=== PATIENT | female | born 1960 | race Caucasian/White ===

== ENCOUNTER → 2017-11-21 | Outpatient (CLI) | payer BC ==
--- NOTE | 2017-11-22 13:47 | MM ---
Reason for exam: screening (asymptomatic). Last mammogram was performed 1 year and 3 months ago. History: Patient is postmenopausal. Benign US biopsy breast VAD LT of the left breast, March 03, 2015. Benign US breast aspiration single LT of the left breast, August 10, 2014. Physical Findings: A clinical breast exam by your physician is recommended on an annual basis and results should be correlated with mammographic findings. MG Screening Mammo w CAD Bilateral CC and MLO view(s) were taken. Prior study comparison: August 28, 2016, bilateral MG diagnostic mammo w CAD [facility]. August 23, 2015, bilateral MG diagnostic mammo w CAD [facility]. The breast tissue is heterogeneously dense. This may lower the sensitivity of mammography. No suspicious abnormality. No significant changes when compared with prior studies. ASSESSMENT: Negative, BI-RAD 1 RECOMMENDATION: Routine screening mammogram of both breasts in 1 year.
== END | disposition home or self-care (01) ==
LOC: RADMAMWWP 10:27
PROVIDERS: ATTEND Obstetrics & Gynecology
DX: Z12.31 Encounter for screening mammogram for malignant neoplasm of breast (principal)

== ENCOUNTER → 2019-01-30 | Outpatient (CLI) | payer BC ==
--- NOTE | 2019-01-30 10:52 | US ---
EXAMINATION TYPE: US thyroid st tissue head/neck DATE OF EXAM: 01/30/2019 COMPARISON: US 09/26/17 CLINICAL HISTORY: E04.2 Nontoxic multinodular goiter. GLAND SIZE: Right Lobe: 4.3 x 1.2 x 0.9 cm Overall Parenchyma: heterogenous Left Lobe: 4.5 x 1.9 x 1.6 cm Overall Parenchyma: heterogeneous Isthmus Thickness: 0.2 cm NODULES RIGHT: # of nodules measured on right: Multinodular, Measurement of previously measured nodule. 1. 0.6 X 0.7 x 0.6 cm hypoechoic cystic nodule at the upper pole with well-defined margins; presen t with microcalcifications. This nodule is wider than tall and shows no intranodular vascularity. Prior size: 0.6 x 1.9 x 1.1 cm LEFT: # of nodules measured on left: Multinodular, Measurement of previously measured nodule 1. 1.9 X 1.6 x 1.0 cm hypoechoic cystic nodule at the lower pole with well-defined margins; present with microcalcifications. This nodule is wider than tall and shows no intranodular vascularity. Prior size: 1.0 x 0.9 x 0.8 cm ISTHMUS: # of nodules measured in the isthmus: 0 Bilateral neck scanned, no evidence of lymphadenopathy. Multiple cysts measured on images. These measurements correspond to previously measured nodules. All appear cystic. Many have microcalcifications. IMPRESSION: 1.9 cm complex cystic nodule in the left lobe is increased in size from the previous exam where it me asured 1 cm. Thyroid tissue is heterogeneous correlate for thyroiditis.
[2019-01-30 11:38] LABS: T4, Free (Free Thyroxine) 1.03 ng/dL (0.78-2.19)
== END | disposition home or self-care (01) ==
LOC: RADUSWWP 10:08
PROVIDERS: ATTEND Internal Medicine Endocrinology, Diabetes & Metabolism
DX: E04.2 Nontoxic multinodular goiter (principal)
CPT/HCPCS: 36415; 76536; 84439; 84443

== ENCOUNTER → 2019-02-25 | Outpatient (CLI) | payer BC ==
--- NOTE | 2019-02-26 12:20 | MM ---
Reason for exam: screening (asymptomatic). Last mammogram was performed 1 year and 3 months ago. History: Patient is postmenopausal. Benign US biopsy breast VAD LT of the left breast, March 03, 2015. Benign US breast aspiration single LT of the left breast, August 10, 2014. Physical Findings: A clinical breast exam by your physician is recommended on an annual basis and results should be correlated with mammographic findings. MG 3D Screening Mammo W/Cad Bilateral CC and MLO view(s) were taken. Prior study comparison: November 21, 2017, bilateral MG screening mammo w CAD. August 28, 2016, bilateral MG diagnostic mammo w CAD [facility]. The breast tissue is heterogeneously dense. This may lower the sensitivity of mammography. There are benign appearing round calcifications bilaterally. Previous mammotome biopsy in the left breast x 2. There is no discrete abnormality. ASSESSMENT: Benign, BI-RAD 2 RECOMMENDATION: Routine screening mammogram of both breasts in 1 year.
== END | disposition home or self-care (01) ==
LOC: RADMAMWWP 10:57
PROVIDERS: ATTEND Obstetrics & Gynecology
DX: Z12.31 Encounter for screening mammogram for malignant neoplasm of breast (principal)
CPT/HCPCS: 77063; 77067

== ENCOUNTER → 2020-07-07 | Outpatient (CLI) | payer BC ==
--- NOTE | 2020-07-07 13:57 | US ---
EXAMINATION TYPE: US thyroid st tissue head/neck DATE OF EXAM: 07/07/2020 COMPARISON: CLINICAL HISTORY: E04.2 non-toxic multinodular goiter. Hx nodules. GLAND SIZE: Right Lobe: 3.7 x 1.3 x 1.0 cm Overall Parenchyma: heterogenous Left Lobe: 4.5 x 2.1 x 1.7 cm Overall Parenchyma: heterogeneous Isthmus Thickness: 0.9 cm NODULES Multiple bilateral nodules seen Previous documented nodules measured RIGHT: # of nodules measured on right: 1 1. 0.8 X 0.7 x 0.5 cm solid nodule at the upper/mid pole with well-defined margins. This nodule is wider than tall and shows no intranodular vascularity. Prior size: 0.6 x 0.7 x 0.6 cm LEFT: # of nodules measured on left: 1 1. 1.3 X 1.3 x 1.3 cm cystic nodule at the lower pole with well-defined margins. This nodule is wi de as tall and shows no intranodular vascularity. Prior size: 1.9 x 1.6 x 1.0 cm ISTHMUS: # of nodules measured in the isthmus: 1 1. 1.9 X 2.0 x 1.4 cm cystic nodule at the lower isthmus pole with well-defined margins. This nodu le is wider than tall and shows no intranodular vascularity. Prior size: No prior Bilateral neck scanned, no evidence of lymphadenopathy. IMPRESSION: Correlate for thyroiditis. Multinodular thyroid changes with a new isthmus nodule measuring 2 cm.
[2020-07-07 15:22] LABS: T4, Free (Free Thyroxine) 1.05 ng/dL (0.78-2.19)
== END | disposition home or self-care (01) ==
LOC: RADUSWWP 13:14
PROVIDERS: ATTEND Internal Medicine Endocrinology, Diabetes & Metabolism
DX: E04.2 Nontoxic multinodular goiter (principal)
CPT/HCPCS: 76536; 84439; 84443

== ENCOUNTER → 2020-08-31 | Outpatient (CLI) | payer BC ==
--- NOTE | 2020-09-01 09:09 | MM ---
Reason for exam: screening (asymptomatic). Last mammogram was performed 1 year and 6 months ago. History: Patient is postmenopausal. Benign US biopsy breast VAD LT of the left breast, March 03, 2015. Benign US breast aspiration single LT of the left breast, August 10, 2014. Physical Findings: A clinical breast exam by your physician is recommended on an annual basis and results should be correlated with mammographic findings. MG 3D Screening Mammo W/Cad Bilateral CC and MLO view(s) were taken. Prior study comparison: February 25, 2019, bilateral MG 3d screening mammo w/cad. November 21, 2017, bilateral MG screening mammo w CAD. The breast tissue is heterogeneously dense. This may lower the sensitivity of mammography. There are benign appearing round calcifications bilaterally. Previous mammotome biopsy in the left breast x 2. Asymmetric breast tissue left medial breast, stable. There is no discrete abnormality. ASSESSMENT: Benign, BI-RAD 2 RECOMMENDATION: Routine screening mammogram of both breasts in 1 year.
== END | disposition home or self-care (01) ==
LOC: RADMAMWWP 09:10
PROVIDERS: ATTEND Family Medicine
DX: Z12.31 Encounter for screening mammogram for malignant neoplasm of breast (principal)
CPT/HCPCS: 77063; 77067

== ENCOUNTER → 2021-09-14 | Outpatient (CLI) | payer BC ==
--- NOTE | 2021-09-18 08:54 | MM ---
Reason for exam: screening (asymptomatic). Last mammogram was performed 1 year ago. History: Patient is postmenopausal. Benign US biopsy breast VAD LT of the left breast, March 03, 2015. Benign US breast aspiration single LT of the left breast, August 10, 2014. Physical Findings: A clinical breast exam by your physician is recommended on an annual basis and results should be correlated with mammographic findings. MG 3D Screening Mammo W/Cad Bilateral CC and MLO view(s) were taken. Prior study comparison: August 31, 2020, bilateral MG 3d screening mammo w/cad. February 25, 2019, bilateral MG 3d screening mammo w/cad. November 21, 2017, bilateral MG screening mammo w CAD. August 28, 2016, bilateral MG diagnostic mammo w CAD [facility]. The breast tissue is heterogeneously dense. This may lower the sensitivity of mammography. Previous mammotome biopsy in the left breast x 2. There is chronic nodularity bilaterally. Benign oil cyst calcifications. Increased subareolar left MLO asymmetric density. The area becomes more defined on 3D images. Work up recommended. ASSESSMENT: Incomplete: need additional imaging evaluation, BI-RAD 0 RECOMMENDATION: Special view mammogram of the left breast. (3D) If lesion persists on supplemental views, image directed ultrasound is recommended. [facility] will attempt to contact patient to return for supplemental views and ultrasound if indicated.
== END | disposition home or self-care (01) ==
LOC: RADMAMWWP 15:44
PROVIDERS: ATTEND Obstetrics & Gynecology
DX: Z12.31 Encounter for screening mammogram for malignant neoplasm of breast (principal)
CPT/HCPCS: 77063; 77067

== ENCOUNTER → 2021-09-19 | Outpatient (CLI) | payer BC ==
--- NOTE | 2021-09-19 08:29 | MM ---
Reason for exam: additional evaluation requested from abnormal screening. Last mammogram was performed less than 1 month ago. History: Patient is postmenopausal and history of other cancer. Benign US biopsy breast VAD LT of the left breast, March 03, 2015. Benign US breast aspiration single LT of the left breast, August 10, 2014. Physical Findings: Nurse did not find any significant physical abnormalities on exam. MG 3D Work Up W/Cad LT Spot compression CC, spot compression MLO, and LM view(s) were taken of the left breast. Prior study comparison: September 14, 2021, bilateral MG 3d screening mammo w/cad. August 31, 2020, bilateral MG 3d screening mammo w/cad. February 25, 2019, bilateral MG 3d screening mammo w/cad. November 21, 2017, bilateral MG screening mammo w CAD. The breast tissue is heterogeneously dense. This may lower the sensitivity of mammography. Previous mammotome biopsy in the left breast x 2. There is no discrete abnormality. No distinct lesion persists on additional views. These results were verbally communicated with the patient and result sheet given to the patient on 09/19/21. ASSESSMENT: Benign, BI-RAD 2 RECOMMENDATION: Return to routine screening mammogram schedule for both breasts.
== END | disposition home or self-care (01) ==
LOC: RADMAMWWP 06:56
PROVIDERS: ATTEND Obstetrics & Gynecology
DX: R92.2 Inconclusive mammogram (principal); Z78.0 Asymptomatic menopausal state
CPT/HCPCS: 77061; 77065

== ENCOUNTER → 2021-11-02 | Outpatient (CLI) | payer BC ==
--- NOTE | 2021-11-02 15:55 | US ---
EXAMINATION TYPE: US thyroid st tissue head/neck DATE OF EXAM: 11/02/2021 COMPARISON: CLINICAL HISTORY: E04.2 Nontoxic multinodular goiter. Follow up thyroid nodules. GLAND SIZE: Right Lobe: 4.3 x 1.2 x 1.1 cm Overall Parenchyma: heterogenous Left Lobe: 4.0 x 2.1 x 1.6 cm Overall Parenchyma: heterogeneous Isthmus Thickness: 0.9 cm NODULES Multiple nodules seen, largest and previous measured on todays exam RIGHT: # of nodules measured on right: 2 1. 0.8 X 0.6 x 0.4 cm, lower mid, cystic or almost completely cystic, anechoic nodule, which is wid er than tall, with smooth margins, with echogenic foci. Prior size: 0.8 x 0.7 x 0.5 cm 2. 0.8 X 0.7 x 0.5 cm, mid lateral, cystic or almost completely cystic, anechoic nodule, which is w ider than tall, with smooth margins, with echogenic foci. Prior size: No prior LEFT: # of nodules measured on left: 1 1. 1.3 X 1.3 x 1.2 cm, lower lateral, mixed cystic and solid, hypoechoic nodule, which is wider inna n tall, with smooth margins, without echogenic foci. Prior size: 1.3 x 1.3 x 1.3 cm ISTHMUS: # of nodules measured in the isthmus: 1 1. 0.8 X 0.6 x 0.6 cm cystic or almost completely cystic, anechoic nodule, which is wide as tall, w ith smooth margins, with echogenic foci. Prior size: 1.9 x 2.0 x 1.4 cm Bilateral neck scanned, no evidence of lymphadenopathy. IMPRESSION: Stable thyroid nodularity which is nonspecific.
== END | disposition home or self-care (01) ==
LOC: RADUSWWP 15:08
PROVIDERS: ATTEND Internal Medicine Endocrinology, Diabetes & Metabolism
DX: E04.2 Nontoxic multinodular goiter (principal)
CPT/HCPCS: 76536

== ENCOUNTER → 2022-09-20 | Outpatient (CLI) | payer BC ==
--- NOTE | 2022-09-21 07:38 | MM ---
Reason for Exam: Screening (asymptomatic). Last screening mammogram was performed 12 month(s) ago. Patient History: Menarche at age 13. First Full-Term at age 25. Hysterectomy at age 54. Postmenopausal. Patient has history of breast feeding. 03/03/2015, Benign Core Biopsy on the left side. 08/10/2014, Benign Cyst Aspiration on the left side. Risk Values: Binta 5 year model risk: 2.0%. NCI Lifetime model risk: 9.0%. Prior Study Comparison: 08/31/2020 Bilateral Screening Mammogram, [facility]. 09/14/2021 Bilateral Screening Mammogram, [facility]. 09/19/2021 Left Diagnostic Mammogram, [facility]. Tissue Density: The breast tissue is heterogeneously dense. This may lower the sensitivity of mammography. Findings: Analyzed By CAD. There is no suspicious group of microcalcifications or new suspicious mass in either breast. Overall Assessment: Benign, BI-RAD 2 Management: Screening Mammogram of both breasts in 1 year. A clinical breast exam by your physician is recommended on an annual basis and results should be correlated with mammographic findings. Electronically signed and approved by: Sky Hoover M.D. Radiologis
== END | disposition home or self-care (01) ==
LOC: RADMAMWWP 06:54
PROVIDERS: ATTEND Obstetrics & Gynecology
DX: Z12.31 Encounter for screening mammogram for malignant neoplasm of breast (principal); Z78.0 Asymptomatic menopausal state
CPT/HCPCS: 77063; 77067

== ENCOUNTER → 2022-11-27 | Outpatient (CLI) | payer BC ==
[2022-11-27 14:29] LABS: HCT 40.8 % (37.2-46.3); HGB 12.9 g/dL (12.0-15.0); MCH 28.4 pg (27.0-32.0); MCHC 31.6 g/dL (32.0-37.0); MCV 89.9 fL (80.0-97.0); Mean Platelet Volume 9.8 fL (9.5-12.2); NRBC Per 100 WBC 0 /100 WBCS (0.0-0.0); Platelet Count 267 X 10*3/uL (140-440); RBC 4.54 X 10*6/uL (4.10-5.20); RDW 15.3 % (11.5-14.5); WBC 5.58 X 10*3/uL (4.50-10.00)
[2022-11-27 14:40] LABS: African American GFR (CKD) 108.9 (60.0-200.0); Anion Gap 9.7 mmol/L (10.00-18.00); Blood Urea Nitrogen 15.7 mg/dL (9.0-27.0); Carbon Dioxide 26.4 mmol/L (20.0-27.5); Non-African American GFR(CKD) 93.9 (60.0-200.0); Potassium 4.5 mmol/L (3.5-5.5)
== END | disposition home or self-care (01) ==
LOC: LABPAT 08:13
PROVIDERS: ATTEND Internal Medicine Interventional Cardiology
DX: Z01.812 Encounter for preprocedural laboratory examination (principal); R94.39 Abnormal result of other cardiovascular function study
CPT/HCPCS: 36415; 80051; 82565; 84520; 85027

== ENCOUNTER 2022-11-29 06:13 | Day surgery (SDC) | payer BC ==
[~2022-11-29 06:13] MED LIST: ALPRAZolam 0.25 MG TAB PO PRN; ALPRAZolam 0.5 MG TAB PO PRN; HEPARIN SODIUM,PORCINE 10,000 UNIT in SODIUM CHLORIDE 0.9% 1,000 ML IRRIGATION PRN; HEPARIN SODIUM,PORCINE 2,500 UNIT in SODIUM CHLORIDE 0.9% 250 ML IRRIGATION PRN; NITROGLYCERIN SL TABS 0.4 MG TAB SUBLINGUAL PRN; SODIUM CHLORIDE 0.9% 1,000 ML in EMPTY BAG 1 BAG IV SCH
[2022-11-29 06:43] VITALS: RESP 18; TEMP 97.6
[2022-11-29] MEDS ORDERED: ASPIRIN 325 MG TAB PO ONE (07:00)
[2022-11-29] MEDS ORDERED: VERAPAMIL 2.5 MG/ML 2 ML AMP ONE (07:14)
[2022-11-29] MEDS ORDERED: fentaNYL (PF) 50 MCG/ML 2 ML AMP ONE (07:23)
[2022-11-29] MEDS ORDERED: fentaNYL (PF) 50 MCG/ML 2 ML AMP IV ONE (07:35)
[2022-11-29] MEDS ORDERED: LIDOCAINE 1% INJ 10MG/ML (5 ML VIAL-PF) SQ ONE (07:41)
[2022-11-29] MEDS ORDERED: VERAPAMIL SYRINGE (5 MG/10 ML) INTRAARTER ONE (07:52)
[2022-11-29] MEDS ORDERED: HEPARIN SODIUM 1,000 UN/ML (10ML VL) IV ONE (07:54)
[2022-11-29] MEDS ORDERED: CLOPIDOGREL 75 MG TAB ONE (08:01)
[2022-11-29] MEDS: HEPARIN SODIUM 1,000 UN/ML (10ML VL) ONE ×2 (08:05→08:16)
[2022-11-29] MEDS ORDERED: CLOPIDOGREL 75 MG TAB PO ONE (08:05)
[2022-11-29] MEDS ORDERED: NITROGLYCERIN 1000MCG/10ML SYRINGE INTRACORON ONE (08:13)
[2022-11-29] MEDS ORDERED: IOPAMIDOL-370 125ML BTL INJ ONE (08:18)
[2022-11-29] MEDS ORDERED: IOPAMIDOL-370 100ML BTL INJ ONE (08:22)
[2022-11-29] MEDS ORDERED: ATROPINE SULFATE 0.1 MG/ML 10ML SYRINGE IV PRN (08:38)
[2022-11-29] MEDS ORDERED: NITROGLYCERIN SL TABS 0.4 MG TAB SUBLINGUAL PRN (08:38)
[2022-11-29] MEDS ORDERED: RX INFO: IV CONTRAST WAS GIVEN 1 EACH MISC MISCELLANE PRN (08:38)
[2022-11-29] MEDS ORDERED: MAG HYDROX/AL HYDROX/SIMETH 30 ML CUP PO PRN (08:38)
[2022-11-29] MEDS ORDERED: ZOLPIDEM 5 MG TAB PO PRN (08:38)
[2022-11-29] MEDS ORDERED: SODIUM CHLORIDE 0.9% 1,000 ML in EMPTY BAG 1 BAG IV SCH (08:45)
--- NOTE | 2022-11-29 08:48 | P.CARDCATH ---
Date of Procedure: 11/29/22 Description of Procedure: Cardiac Catheterization: The patient is a 62-year-old female with history of hyperlipidemia who has been complaining of symptoms of chest discomfort and had an abnormal MPI. Recommendations were made regarding cardiac catheterization, the risks and the complications were discussed with the patient who is in full understanding and agreement. 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 Using Xylocaine Anesthesia and Seldinger technique, a 6-Afghan sheath was introduced in the right radial artery . Subsequently, selective coronary angiography was performed using a 5-Afghan 3.5 bend Vaishali catheter. Multiple views of the coronary artery including hemiaxial views were obtained. The 5-Afghan pigtail catheter was used to cross the aortic valve and LVEDP was calculated. Following that a 6-Afghan CLS 3.5 guiding catheter was introduced into the system and the left main was cannulated, a 0.014 BMW J-wire was positioned in the distal LAD, subsequently a 2.5 x 12 mm Treck was advanced and one inflation at 8 faisal was done, after removing the balloon a 2.5 x 18 mm Xience braxton point was advanced and deployed at 12 faisal. After removing the wire images were obtained and revealed stable successful stenting. Following that, catheter and sheath were removed. Hemostasis was obtained with deployment of TR band . There was no immediate complication. Patient was returned to room in stable condition. Of note, the patient received a total of 7000 units of intravenous heparin as well as intra-arterial verapamil. Her ACT was followed. She received a loading dose of clopidogrel. She had chest discomfort with the inflations but no significant EKG changes. Her discomfort resolved at the end of the procedure. Findings: Fluoroscopy: Severe calcifications of the LAD was noted proximally Left main: This is a short sized vessel, bifurcating into LAD and left circumflex, left main has no high-grade stenosis. LAD: This is a large size vessel, reaching to the apex with a wraparound the apex segment giving rise to a moderately sized proximal diagonal branch that has a 60-70% stenosis in the midsegment the vessel beyond that this morning caliber. The distal LAD has an eccentric 90% stenosis. The proximal LAD has a 20-30% plaque. Left circumflex: This is a nondominant vessel, giving rise to a large obtuse marginal branch, the obtuse marginal branch has a 50% plaque the rest of the vessel has no high-grade stenosis RCA: This is a large dominant vessel, bifurcating into PDA and PLV, the PLV this morning caliber and has a 50-60% stenosis in the proximal segment the rest of the vessel has no high-grade stenosis Left Ventriculogram: Not performed Hemodynamics: There was no gradient across the aortic valve, LVEDP was 18-20 mmHg Conclusion: 1. Calcified coronary arteries, predominantly in the LAD 2. Critical stenosis in the distal LAD 3. Mild to moderate disease in the OM branch and right PLV. With mild disease in the proximal LAD 4. Successful stenting of the distal LAD with reduction of stenosis from 90% to 0% Recommendations: The patient will continue on dual antiplatelet treatment with aspirin and Plavix for 6 months without any interruption in addition to aggressive coronary risks modifications. The findings and the recommendations were discussed with the patient and the family and they were in full understanding and agreement. Duration of sedation is 42 minutes.
[2022-11-29] MEDS ORDERED: MULTIVITAMINS, THERA 1 EACH TAB PO SCH (09:00)
[2022-11-29] MEDS ORDERED: ASPIRIN 81 MG PO SCH (09:00)
[2022-11-29] MEDS ORDERED: METOPROLOL TARTRATE 25 MG TAB PO SCH (09:00)
[2022-11-29 12:03] VITALS: BP 124/68; PULSE 74
[2022-11-29] MEDS ORDERED: NON FORMULARY DRUG (Simvastatin [Simvastatin] 40 MG Tablet) PO SCH (21:00)
[2022-11-30] MEDS ORDERED: CLOPIDOGREL 75 MG TAB PO SCH (09:00)
== END 2022-11-29 12:05 | disposition home or self-care (01) ==
LOC: CATHCVL 06:13
PROVIDERS: ATTEND Internal Medicine Interventional Cardiology
DX: I25.10 Atherosclerotic heart disease of native coronary artery without angina pectoris (principal); E78.2 Mixed hyperlipidemia; Z82.49 Family history of ischemic heart disease and other diseases of the circulatory system; Z87.891 Personal history of nicotine dependence; F10.20 Alcohol dependence, uncomplicated; Z79.82 Long term (current) use of aspirin; Z79.01 Long term (current) use of anticoagulants; Z79.02 Long term (current) use of antithrombotics/antiplatelets; Z79.899 Other long term (current) drug therapy
CPT/HCPCS: 93458; C9600; C1769 ×3; C1887; C1894; C1725; C1874; J2001; J3010; J1644; Q9967 ×2

== ENCOUNTER → 2023-10-07 | Outpatient (CLI) | payer BC ==
--- NOTE | 2023-10-08 09:00 | MM ---
Reason for Exam: Screening (asymptomatic). Last mammogram was performed 1 year(s) and 1 month(s) ago. Patient History: Menarche at age 13. First Full-Term at age 25. Hysterectomy at age 54. Postmenopausal. Patient has history of breast feeding. 03/03/2015, Benign Core Biopsy on the left side. 08/10/2014, Benign Cyst Aspiration on the left side. Risk Values: Binta 5 year model risk: 2.1%. NCI Lifetime model risk: 8.7%. Prior Study Comparison: 09/14/2021 Bilateral Screening Mammogram, [facility]. 09/19/2021 Left Diagnostic Mammogram, [facility]. 09/20/2022 Bilateral MG 3D screening mammo w/cad, [facility]. Tissue Density: The breast tissue is heterogeneously dense. This may lower the sensitivity of mammography. Findings: Analyzed By CAD. There is no suspicious group of microcalcifications or new suspicious mass in either breast. Overall Assessment: Benign, BI-RAD 2 Management: Screening Mammogram of both breasts in 1 year. . Patient should continue monthly self-breast exams. A clinical breast exam by your physician is recommended on an annual basis. This exam should not preclude additional follow-up of suspicious palpable abnormalities. Note on Binta scores and lifetime risk: 1. A Binta score greater than 3% is considered moderate risk. If this is the case, consider specialist referral to assess eligibility for a risk reducing agent. 2. If overall lifetime risk for the development of breast cancer is 20% or higher, the patient may qualify for future screening with alternating mammogram and breast MRI. Electronically signed and approved by: Sky Hoover M.D. Radiologis
== END | disposition home or self-care (01) ==
LOC: RADMAMWWP 10:55
PROVIDERS: ATTEND Family Medicine
DX: Z12.31 Encounter for screening mammogram for malignant neoplasm of breast (principal); Z78.0 Asymptomatic menopausal state
CPT/HCPCS: 77063; 77067

== ENCOUNTER → 2023-11-22 | Outpatient (CLI) | payer BC ==
--- NOTE | 2023-11-22 18:01 | US ---
EXAMINATION TYPE: US thyroid st tissue head/neck DATE OF EXAM: 11/22/2023 COMPARISON: 01/03/2023 CLINICAL INDICATION: Female, 63 years old with history of E04.2 thyroid nodule; Follow up nodules GLAND SIZE: Right Lobe: 4.3 x 1.1 x 1.1 cm Overall Parenchyma: heterogenous Left Lobe: 4.5 x 2.1 x 1.7 cm Overall Parenchyma: heterogenous Isthmus Thickness: 0.9 cm [employer] Estate [employer] notes:Suboptimal visualization due to thyroid location and clavicle NODULES RIGHT: # of nodules measured on right: 1- Multiple colloid nodules visualized with largest measured , difficult to correlate with previous ultrasound 1. 0.5 X 0.6 x 0.6 cm, Colloid cyst lower mid, cystic or almost completely cystic, anechoic nodule, which is wider than tall, with smooth margins, without echogenic foci. Prior size: to correlate with previous ultrasound LEFT: # of nodules measured on left: 2- Multiple colloid nodules visualized with largest measured , difficult to correlate with previous ultrasound 1. 0.8 X 0.8 x 0.8 cm, lower lateral, solid or almost completely solid, isoechoic TR 3 nodule, whic h is wider than tall, with smooth margins, without echogenic foci. Prior size: No prior 2. 1.2 X 1.0 x 0.9 cm, Colloid cyst lower mid, cystic or almost completely cystic, anechoic nodule , which is wider than tall, with smooth margins, without echogenic foci. Prior size: difficult to correlate with previous ultrasound ISTHMUS: # of nodules measured in the isthmus: 1- Multiple colloid nodules visualized with larges t measured, difficult to correlate with previous ultrasound 1. 0.7 X 0.6 x 0.5 cm Colloid cyst cystic or almost completely cystic, anechoic nodule, which is wi flower than tall, with smooth margins, without echogenic foci. Prior size: difficult to correlate with previous ultrasound Bilateral neck scanned, no evidence of lymphadenopathy. IMPRESSION: 1. Numerous bilateral colloid cysts. 2. A solitary TR3 nodule at the left lower pole measuring 8 mm was not clearly seen previously. 2017 ACR TI-RADS LEVEL: TR-RADS 3 - Mildly Suspicious: Follow if > 1.5 cm, FNA if > 2.5 cm *Highest TI-RADS level nodule reported
== END | disposition home or self-care (01) ==
LOC: RADUSWWP 12:07
PROVIDERS: ATTEND Internal Medicine Endocrinology, Diabetes & Metabolism
DX: E04.2 Nontoxic multinodular goiter (principal)
CPT/HCPCS: 76536

== ENCOUNTER → 2024-10-28 | Outpatient (CLI) | payer BC ==
--- NOTE | 2024-10-28 14:07 | BD ---
EXAMINATION TYPE: Axial Bone Density DATE OF EXAM: 10/28/2024 CLINICAL HISTORY: 64 years old Female. ICD-10 CODE: N95.1 MENOPAUSAL AND F , Additional History: Height: 61 in Weight: 190 lbs EXAM MEASUREMENTS: Bone mineral densitometry was performed using the [employer]. Bone mineral density as measured about the Lumbar spine is: ----- L1-L4(G/cm2): 1.022 T Score Values are as follows: ----- L1: -2.7 ----- L2: -2.8 ----- L3: -1.1 ----- L4: 0.3 ----- L1-L4: -1.3 Z Score Values are as follows: ----- L1: -1.8 ----- L2: -1.9 ----- L3: -0.3 ----- L4: 1.1 ----- L1-L4: -0.5 Bone mineral density baseline Bone mineral density about the R hip (g/cm2): 0.778 Bone mineral density about the L hip (g/cm2): 0.809 T Score values are as follows: -----R Neck: -1.8 -----L Neck: -2.2 -----R Total: -1.8 -----L Total: -1.6 Z Score values are as follows: -----R Neck: -0.9 -----L Neck: -1.2 -----R Total: -1.2 -----L Total: -0.9 Bone mineral density baseline FRAX%s: The graph provided illustrates a 10.6% chance for a major osteoporotic fx and a 1.7% chance f or the hips probability for fx in 10 years time. IMPRESSION: Osteopenia (T Score between -2.5 and -1). Note that measurements are bordering on osteoporosis in the lumbar spine. There is slightly increased risk of fracture and the patient may be considered for treatment. Re-Screen 2-5 years. NOTE: T-SCORE=SD OF THE YOUNG ADULT MEAN. [facility], Workstation: [employer], 10/28/2024 2:05 PM
--- NOTE | 2024-10-29 18:38 | MM ---
Reason for Exam: Screening (asymptomatic). Last mammogram was performed 1 year(s) and 1 month(s) ago. Patient History: Menarche at age 13. First Full-Term at age 25. Hysterectomy at age 54. Postmenopausal. Patient has history of breast feeding. 03/03/2015, Benign Core Biopsy on the left side. 08/10/2014, Benign Cyst Aspiration on the left side. Risk Values: Binta 5 year model risk: 2.1%. NCI Lifetime model risk: 8.4%. Prior Study Comparison: 09/19/2021 Left Diagnostic Mammogram, [facility]. 09/20/2022 Bilateral MG 3D screening mammo w/cad, [facility]. 10/07/2023 Bilateral MG 3D screening mammo w/cad, [facility]. Tissue Density: The breasts are heterogeneously dense, which may obscure small masses. Findings: Analyzed By CAD. Unchanged areas of asymmetric density. The microclip left breast from prior biopsies. Unchanged benign round and punctate calcifications. There is no suspicious group of microcalcifications or new suspicious mass in either breast. Overall Assessment: Benign, BI-RAD 2 Management: Screening Mammogram of both breasts in 1 year. . Patient should continue monthly self-breast exams. A clinical breast exam by your physician is recommended on an annual basis. This exam should not preclude additional follow-up of suspicious palpable abnormalities. Note on Binta scores and lifetime risk: 1. A Binta score greater than 3% is considered moderate risk. If this is the case, consider specialist referral to assess eligibility for a risk reducing agent. 2. If overall lifetime risk for the development of breast cancer is 20% or higher, the patient may qualify for future screening with alternating mammogram and breast MRI. [facility], , 10/29/2024 6:36 PM. Electronically signed and approved by: Angelita Pagan M.D. Radiologist
== END | disposition home or self-care (01) ==
LOC: RADMAMWWP 07:17
PROVIDERS: ATTEND Family Medicine
DX: Z12.31 Encounter for screening mammogram for malignant neoplasm of breast (principal); Z78.0 Asymptomatic menopausal state; M81.0 Age-related osteoporosis without current pathological fracture; M85.80 Other specified disorders of bone density and structure, unspecified site
CPT/HCPCS: 77063; 77067; 77080

== ENCOUNTER 2025-02-04 12:13 | Day surgery (SDC) | payer BC ==
[~2025-02-04 12:13] MED LIST changes: -ALPRAZolam 0.25 MG TAB PO PRN; -ALPRAZolam 0.5 MG TAB PO PRN; -HEPARIN SODIUM,PORCINE 10,000 UNIT in SODIUM CHLORIDE 0.9% 1,000 ML IRRIGATION PRN; -HEPARIN SODIUM,PORCINE 2,500 UNIT in SODIUM CHLORIDE 0.9% 250 ML IRRIGATION PRN; +LACTATED RINGERS 1,000 ML IV SCH; +LIDOCAINE 1% (10MG/ML) FOR IV START INTRADERMA PRN; -NITROGLYCERIN SL TABS 0.4 MG TAB SUBLINGUAL PRN; -SODIUM CHLORIDE 0.9% 1,000 ML in EMPTY BAG 1 BAG IV SCH
[2025-02-04 12:50] VITALS: TEMP 99.3
[2025-02-04] MEDS: LACTATED RINGERS 1,000 ML IV ONE (12:55)
[2025-02-04] MEDS ORDERED: PROPOFOL 10 MG/ML 20 ML VIAL IV ONE (13:11)
--- NOTE | 2025-02-04 13:17 | P.GSHP ---
History of Present Illness H&P Date: 02/04/25 Chief Complaint: Screening with family history of colon cancer 64-year-old female here for colonoscopy. Last colonoscopy she states was 7 years ago. Family history of colon cancer in father. No bowel complaints. No history of polyps. Past Medical History Past Medical History: Coronary Artery Disease (CAD), Cancer, Chest Pain / Angina, Hyperlipidemia Additional Past Medical History / Comment(s): skin cancer [place] History of Any Multi-Drug Resistant Organisms: None Reported Past Surgical History: Heart Catheterization With Stent, Hysterectomy Additional Past Surgical History / Comment(s): bladder suspension, colonoscopy, squamous cell cancer MOHS procedure [place] Past Anesthesia/Blood Transfusion Reactions: No Reported Reaction Date of Last Stent Placement:: 2022 Smoking Status: Never smoker - Past Family History Father Family Medical History: Cancer, Coronary Artery Disease (CAD), Myocardial Infarction (DC) Additional Family Medical History / Comment(s): CABG. of colon cancer age 66 Mother Family Medical History: Coronary Artery Disease (CAD), Myocardial Infarction (DC) Additional Family Medical History / Comment(s): CABG, colon polyps Brother(s) Family Medical History: Coronary Artery Disease (CAD), Myocardial Infarction (DC) Additional Family Medical History / Comment(s): CABG, colon polyps Medications and Allergies Home Medications Medication Instructions Recorded Confirmed Type Aspirin 81 mg PO DAILY 09/15/14 02/02/25 History Calcium Carbonate/Vitamin D3 1 tab PO DAILY 11/26/22 02/02/25 History [Calcium 600 mg-D3 10 Mcg (400 Iu)] Metoprolol Tartrate 25 mg PO BID 11/26/22 02/02/25 History Multivitamins, Thera [Multivitamin 1 tab PO DAILY 11/26/22 02/02/25 History (formulary)] flaxseed oiL [Eunice-3 Flaxseed Oil] 1,000 mg PO DAILY 11/26/22 02/02/25 History Nitroglycerin Sl Tabs [Nitrostat] 0.4 mg SUBLINGUAL Q5M PRN #25 tab 11/29/22 02/02/25 Rx Alendronate Sodium [Fosamax] 70 mg PO Q7D 02/02/25 02/02/25 History Cholecalciferol (Vitamin D3) 1 tab PO DAILY 02/02/25 02/02/25 History [Vitamin D3 (50 Mcg = 2000 Iu)] Ergocalciferol [Vitamin D2 (1250 1 tab PO Q7D 02/02/25 02/02/25 History Mcg = 92660 Iu)] Ezetimibe [Zetia] 10 mg PO HS 02/02/25 02/02/25 History Rosuvastatin [Crestor] 10 mg PO HS 02/02/25 02/02/25 History Allergies Allergy/AdvReac Type Severity Reaction Status Date / Time atorvastatin [From Lipitor] Allergy Rash/Hives Verified 02/04/25 12:42 Surgical - Exam Vital Signs Temp Pulse Resp BP Pulse Ox 99.3 F 96 16 129/80 98 02/04/25 12:50 02/04/25 12:50 02/04/25 12:50 02/04/25 12:50 02/04/25 12:50 Physical exam: General: Well-developed, well-nourished HEENT: Normocephalic, sclerae nonicteric Abdomen: Nontender, nondistended Extremities: No edema Neuro: Alert and oriented Assessment and Plan (1) Colon cancer screening Narrative/Plan: Will proceed with colonoscopy at this time. Current Visit: Yes Status: Acute Code(s): Z12.11 - ENCOUNTER FOR SCREENING FOR MALIGNANT NEOPLASM OF COLON SNOMED Code(s): 830273032
--- NOTE | 2025-02-04 13:44 | P.PCN ---
Date of Procedure: 02/04/25 Procedure(s) Performed: PREOPERATIVE DIAGNOSIS: Screening with family history of colon cancer POSTOPERATIVE DIAGNOSIS: Transverse colon polyp x 3, diverticulosis PROCEDURE: Colonoscopy with snare polypectomy ANESTHESIA: MAC SURGEON: Bennie Escobedo M.D. SPECIMENS: Polyps ENDOSCOPIC PROCEDURE: The patient was placed on the endoscopy table in the left decubitus position. The Olympus colonoscope was inserted into the anus and passed under direct visualization to the base of the cecum. The appendiceal or ifice was visualized. From that point the scope was slowly withdrawn inspecting all surfaces carefully. There were no neoplastic inflammatory or polypoid lesions throughout the cecum or ascending colon. In the transverse colon there were 3 small polyps all removed using the snare with cautery technique. 1 of which was fulgurated and no sample that was obtained. The remainder of the descending sigmoid and rectum appeared normal with exception of mild left-sided diverticulosis. Digital rectal examination was normal. The patient was taken to the recovery room in stable condition per anesthesia guidelines. RECOMMENDATIONS: Await biopsy results. Plan repeat colonoscopy 5 years.
[2025-02-04 14:06] VITALS: BP 109/65; PULSE 89; RESP 16
== END 2025-02-04 14:28 | disposition home or self-care (01) ==
LOC: ORWHC2ENDO 12:13
PROVIDERS: ATTEND Surgery
DX: Z12.11 Encounter for screening for malignant neoplasm of colon (principal); D12.3 Benign neoplasm of transverse colon; K57.30 Diverticulosis of large intestine without perforation or abscess without bleeding; I25.10 Atherosclerotic heart disease of native coronary artery without angina pectoris; E78.5 Hyperlipidemia, unspecified; F17.200 Nicotine dependence, unspecified, uncomplicated; Z80.0 Family history of malignant neoplasm of digestive organs; Z85.828 Personal history of other malignant neoplasm of skin; Z90.710 Acquired absence of both cervix and uterus; Z82.49 Family history of ischemic heart disease and other diseases of the circulatory system; Z83.719 Family history of colon polyps, unspecified; Z88.8 Allergy status to other drugs, medicaments and biological substances; Z79.82 Long term (current) use of aspirin; Z79.899 Other long term (current) drug therapy
CPT/HCPCS: 88305; 45385; J2704